=== PATIENT | female | born 1990 | race Caucasian/White ===

== ENCOUNTER 2020-08-19 22:39 | Emergency (ER) | payer OTHER ==
[2020-08-20 00:33] LABS: BASOPHIL 0.4 % (0-2); EOSINOPHIL 2.5 % (0-5); HCT 42.6 % (37.0-47.0); HGB 13.6 g/dl (12.5-16.0); LYMPHOCYTE 24.8 % (15-48); MCH 30.4 pg (25.0-31.0); MCHC 31.9 g/dL (32.0-36.0); MCV 95.3 fL (78.0-100.0); MONOCYTE 8.8 % (0-12); MPV 10.2 fL (6.0-9.5); NEUTROPHIL 63.2 % (41-80); NRBC 0; PLT 313 K/uL (150-400); RBC 4.47 M/uL (4.20-5.40); RDW 13.2 % (11.5-14.0); WBC 8.9 K/uL (4.0-10.5)
[2020-08-20 00:51] LABS: ALBUMIN 3.9 g/dL (3.4-5.0); BILIRUBIN - TOTAL 0.2 mg/dL (0.2-1.0); BUN/CREAT RATIO (CALC) 16.9 RATIO; CREATININE 0.59 mg/dL (0.51-0.95); GLOBULIN (CALCULATION) 3.8 g/dL; POTASSIUM 3.8 mmol/L (3.5-5.1); TOTAL PROTEIN 7.7 g/dL (6.4-8.2)
== END 2020-08-20 01:42 | disposition home or self-care (01) ==
LOC: FER 22:39
PROVIDERS: Emergency Medicine Emergency Medical Services
DX: R07.89 Other chest pain (principal); I49.9 Cardiac arrhythmia, unspecified; R06.02 Shortness of breath
CPT/HCPCS: 36415; 71046; 80053; 84484; 85025; 93005